=== PATIENT | female | born 1930 | race Caucasian/White ===

== ENCOUNTER → 2017-04-08 | Outpatient (CLI) | payer OTHER ==
[~2017-04-08] VITALS: Ht 162.6 cm; Wt 68.0 kg
[~2017-04-08] MED LIST: ADENOSINE 57 MG in GIVE UN-DILUTED 0 ML IV STA; ASCO500T11 PO; ASPI-231 PO; BENZ1CAP24 PO; CALC-315 OR; CHOL20007 OR; CHON400C PO; DICL1GEL26 TOP; GLUC1TAB22 PO; IRBE300T46 PO; LORA-622 PO; OMEG1CAP59 PO
[2017-04-08 09:35] VITALS: BP 145/85
== END | disposition home or self-care (01) ==
LOC: XYW 07:50
PROVIDERS: ATTEND Internal Medicine
DX: I08.3 Combined rheumatic disorders of mitral, aortic and tricuspid valves (principal); I11.0 Hypertensive heart disease with heart failure; I50.9 Heart failure, unspecified
CPT/HCPCS: 93017; 93306; J0153

== ENCOUNTER → 2017-04-20 | Outpatient (CLI) | payer OTHER ==
[~2017-04-20] MED LIST changes: -ADENOSINE 57 MG in GIVE UN-DILUTED 0 ML IV STA; +ALBUTEROL SULF 2.5 MG/0.5ML(0.5%) NEB SOLN ONE
== END | disposition home or self-care (01) ==
LOC: RT 08:41
PROVIDERS: ATTEND Internal Medicine Pulmonary Disease
DX: J47.9 Bronchiectasis, uncomplicated (principal)
CPT/HCPCS: 94060; 94640

== ENCOUNTER → 2017-05-11 | Outpatient (CLI) | payer OTHER ==
[~2017-05-11] MED LIST changes: -ALBUTEROL SULF 2.5 MG/0.5ML(0.5%) NEB SOLN ONE
[2017-05-11 08:58] LABS: Basophils # (auto) 0.1 uL; Basophils % (auto) 1.1 % (0.0-2.0); Eosinophils # (auto) 0.2 uL; Eosinophils % (auto) 2.6 % (0.0-7.0); Hematocrit 44.9 % (36.0-46.0); Hemoglobin 14.7 g/dL (12.2-16.2); Lymphocytes # (auto) 2.1 uL; Lymphocytes % (auto) 26.7 % (10.0-50.0); Mean Corpuscular Hemoglobin 29.6 pg (28.0-32.0); Mean Corpuscular Hgb Conc. 32.9 g/dL (32.0-36.0); Mean Corpuscular Volume 90.1 fL (80.0-100.0); Monocytes # (auto) 0.7 uL; Monocytes % (auto) 8.9 % (0.0-12.0); Neutrophils # (auto) 4.8 uL; Neutrophils % (auto) 60.7 % (37.0-80.0); Nucleated Red Blood Cells % 0.1 %; Platelet Count (auto) 316 10^3/uL (140-450); Red Blood Cells 4.98 10^6/uL (4.0-5.20); Red Cell Distribution Width 13.7 % (11.8-14.3); White Blood Cell 7.8 10^3/uL (4.4-10.8)
[2017-05-11 09:15] LABS: INR 0.98 (0.9-1.15); Partial Thromboplastin Time 28.3 sec (22.64-33.71); Prothrombin Time 10.7 sec (9.37-12.3)
[2017-05-11 10:22] LABS: Albumin 3.5 g/dL (3.4-5.0); BUN/Creatinine Ratio 27.5; Calcium 8.8 mg/dL (8.5-10.1); Total Protein 7.6 g/dL (6.4-8.2)
== END | disposition home or self-care (01) ==
LOC: LAB 08:44
PROVIDERS: ATTEND Internal Medicine
DX: Z01.812 Encounter for preprocedural laboratory examination (principal); I42.9 Cardiomyopathy, unspecified
CPT/HCPCS: 36415; 80053; 85025; 85610; 85730

== ENCOUNTER → 2017-05-12 | Day surgery (SDC) | payer OTHER ==
[~2017-05-12] VITALS: Ht 162.6 cm; Wt 67.6 kg
[~2017-05-12] MED LIST changes: +ANGIOMAX 250 MG VIAL IV ONE; +MIDAZOLAM HCL 1MG/1ML-2 ML VIAL ONE; +SODIUM CHL 0.9% 0 ML ONE; +fentaNYL CITRATE 100 MCG/2 ML VL ONE
== END | disposition home or self-care (01) ==
LOC: CATH 07:51
PROVIDERS: ATTEND Internal Medicine
DX: I42.9 Cardiomyopathy, unspecified (principal); Z88.0 Allergy status to penicillin; E66.9 Obesity, unspecified; J44.9 Chronic obstructive pulmonary disease, unspecified; Z88.8 Allergy status to other drugs, medicaments and biological substances; J40 Bronchitis, not specified as acute or chronic; Z79.82 Long term (current) use of aspirin; Z79.51 Long term (current) use of inhaled steroids; Z79.84 Long term (current) use of oral hypoglycemic drugs; N18.2 Chronic kidney disease, stage 2 (mild); I12.9 Hypertensive chronic kidney disease with stage 1 through stage 4 chronic kidney disease, or unspecified chronic kidney disease
CPT/HCPCS: 93458; C1760; C1894; J2250; J3010; J7030; 99152

== ENCOUNTER → 2017-06-25 | Outpatient (CLI) | payer OTHER ==
[~2017-06-25] MED LIST changes: -ANGIOMAX 250 MG VIAL IV ONE; -MIDAZOLAM HCL 1MG/1ML-2 ML VIAL ONE; -SODIUM CHL 0.9% 0 ML ONE; -fentaNYL CITRATE 100 MCG/2 ML VL ONE
[2017-06-25 12:58] LABS: Basophils # (auto) 0.1 uL; Basophils % (auto) 0.8 % (0.0-2.0); Eosinophils # (auto) 0.2 uL; Eosinophils % (auto) 3.2 % (0.0-7.0); Hematocrit 40.9 % (36.0-46.0); Hemoglobin 13.7 g/dL (12.2-16.2); Lymphocytes % (auto) 25.9 % (10.0-50.0); Mean Corpuscular Hgb Conc. 33.5 g/dL (32.0-36.0); Mean Corpuscular Volume 89.6 fL (80.0-100.0); Monocytes # (auto) 0.6 uL; Monocytes % (auto) 8.1 % (0.0-12.0); Neutrophils # (auto) 4.7 uL; Platelet Count (auto) 284 10^3/uL (140-450); Red Blood Cells 4.56 10^6/uL (4.0-5.20); Red Cell Distribution Width 13.2 % (11.8-14.3); Urine Bacteria NONE SEEN /hpf (None Seen); Urine Blood Negative /uL (Negative); Urine WBC <1 /hpf (0 - 5); White Blood Cell 7.6 10^3/uL (4.4-10.8)
[2017-06-25 13:05] LABS: INR 0.95 (0.9-1.15); Partial Thromboplastin Time 28.7 sec (22.64-33.71); Prothrombin Time 10.3 sec (9.37-12.3)
[2017-06-25 13:32] LABS: Free T4 (Free Thyroxine) 0.97 ng/dL (0.89-1.76)
[2017-06-25 13:33] LABS: T3 Total 0.95 ng/mL (0.60-1.81)
[2017-06-25 13:40] LABS: Albumin 3.4 g/dL (3.4-5.0); BUN/Creatinine Ratio 23.9; Bilirubin, Total 0.8 mg/dL (0.2-1.0); CRP High Sensitivity 0.51 mg/dL (< 0.3); Calcium 8.8 mg/dL (8.5-10.1); Potassium 3.9 mmol/L (3.5-5.1); Total Protein 7.2 g/dL (6.4-8.2)
== END | disposition home or self-care (01) ==
LOC: LAB 11:12
PROVIDERS: ATTEND Internal Medicine
DX: I13.0 Hypertensive heart and chronic kidney disease with heart failure and stage 1 through stage 4 chronic kidney disease, or unspecified chronic kidney disease (principal); N18.2 Chronic kidney disease, stage 2 (mild); I50.9 Heart failure, unspecified; J44.9 Chronic obstructive pulmonary disease, unspecified; Z79.82 Long term (current) use of aspirin; Z79.51 Long term (current) use of inhaled steroids
CPT/HCPCS: 36415; 80053; 80061; 81001; 82306; 82607; 83036; 84439; 84443; 84480; 85025; 85610; 85730; 86141

== ENCOUNTER → 2017-07-13 | Outpatient (CLI) | payer OTHER | END | disposition home or self-care (01) | LOC: XYW 10:01 | PROVIDERS: ATTEND Internal Medicine | DX: I08.0 Rheumatic disorders of both mitral and aortic valves (principal); I13.0 Hypertensive heart and chronic kidney disease with heart failure and stage 1 through stage 4 chronic kidney disease, or unspecified chronic kidney disease; N18.2 Chronic kidney disease, stage 2 (mild); I50.9 Heart failure, unspecified; J44.9 Chronic obstructive pulmonary disease, unspecified; Z79.82 Long term (current) use of aspirin | CPT/HCPCS: 93306 ==

== ENCOUNTER → 2017-07-20 | Outpatient (CLI) | payer OTHER | END | disposition home or self-care (01) | LOC: LAB 09:32 | PROVIDERS: ATTEND Specialist | DX: N76.0 Acute vaginitis (principal); I12.9 Hypertensive chronic kidney disease with stage 1 through stage 4 chronic kidney disease, or unspecified chronic kidney disease; N18.2 Chronic kidney disease, stage 2 (mild); J44.9 Chronic obstructive pulmonary disease, unspecified; Z79.82 Long term (current) use of aspirin; Z79.51 Long term (current) use of inhaled steroids | CPT/HCPCS: 87070; 87088; 87186 ==

== ENCOUNTER → 2018-02-23 | Outpatient (CLI) | payer OTHER ==
[2018-02-23 10:26] LABS: Basophils # (auto) 0.1 uL; Basophils % (auto) 1.4 % (0.0-2.0); Eosinophils # (auto) 0.2 uL; Eosinophils % (auto) 2.7 % (0.0-7.0); Hematocrit 42.7 % (36.0-46.0); Lymphocytes % (auto) 24.2 % (10.0-50.0); Mean Corpuscular Hemoglobin 29.8 pg (28.0-32.0); Mean Corpuscular Hgb Conc. 32.7 g/dL (32.0-36.0); Mean Corpuscular Volume 91.1 fL (80.0-100.0); Monocytes # (auto) 0.7 uL; Monocytes % (auto) 9.1 % (0.0-12.0); Neutrophils # (auto) 5.1 uL; Neutrophils % (auto) 62.6 % (37.0-80.0); Platelet Count (auto) 293 10^3/uL (140-450); Red Blood Cells 4.69 10^6/uL (4.0-5.20); Red Cell Distribution Width 13.6 % (11.8-14.3); White Blood Cell 8.2 10^3/uL (4.4-10.8)
[2018-02-23 10:50] LABS: Potassium 3.9 mmol/L (3.5-5.1)
[2018-02-23 10:58] LABS: Albumin 3.2 g/dL (3.4-5.0); BUN/Creatinine Ratio 24.7; Bilirubin, Total 1.1 mg/dL (0.2-1.0); Calcium 8.7 mg/dL (8.5-10.1); Total Protein 7.1 g/dL (6.4-8.2)
== END | disposition home or self-care (01) ==
LOC: LAB 09:49
PROVIDERS: ATTEND Physician Assistant
CPT/HCPCS: 36415; 80053; 80061; 85025

== ENCOUNTER → 2019-09-12 | Outpatient (CLI) | payer OTHER ==
[~2019-09-12] MED LIST changes: -BENZ1CAP24 PO; +BENZ200C64 PO; +IRBE300T43 PO; -IRBE300T46 PO
[2019-09-12 12:07] LABS: Basophils # (auto) 0.1 10 ^3/uL (0-0.2); Basophils % (auto) 1.1 % (0.0-2.0); Eosinophils # (auto) 0.3 10 ^3/uL (0-0.8); Eosinophils % (auto) 4.4 % (0.0-7.0); Hematocrit 39.9 % (36.0-46.0); Hemoglobin 13.1 g/dL (12.2-16.2); Lymphocytes % (auto) 29.5 % (10.0-50.0); Mean Corpuscular Hemoglobin 29.7 pg (28.0-32.0); Mean Corpuscular Hgb Conc. 32.8 g/dL (32.0-36.0); Mean Corpuscular Volume 90.7 fL (80.0-100.0); Monocytes # (auto) 0.6 10 ^3/uL (0-1.3); Neutrophils # (auto) 3.8 10 ^3/uL (1.6-8.6); Nucleated Red Blood Cells % 0.1 %; Platelet Count (auto) 295 10^3/uL (140-450); Red Cell Distribution Width 13.9 % (11.8-14.3); White Blood Cell 6.8 10^3/uL (4.4-10.8)
[2019-09-12 12:28] LABS: Albumin 3.1 g/dL (3.4-5.0); Potassium 3.9 mmol/L (3.5-5.1)
[2019-09-12 12:35] LABS: BUN/Creatinine Ratio 27.5; Calcium 8.5 mg/dL (8.5-10.1); Total Protein 6.8 g/dL (6.4-8.2)
== END | disposition home or self-care (01) ==
LOC: LAB 11:41
PROVIDERS: ATTEND Physician Assistant
DX: I13.0 Hypertensive heart and chronic kidney disease with heart failure and stage 1 through stage 4 chronic kidney disease, or unspecified chronic kidney disease (principal); N18.2 Chronic kidney disease, stage 2 (mild); I50.9 Heart failure, unspecified; E78.5 Hyperlipidemia, unspecified
CPT/HCPCS: 36415; 80053; 80061; 85025

== ENCOUNTER → 2020-11-07 | Outpatient (CLI) | payer OTHER ==
[2020-11-07 09:51] LABS: Basophils # (auto) 0.1 10 ^3/uL (0-0.2); Basophils % (auto) 1.3 % (0.0-2.0); Eosinophils # (auto) 0.1 10 ^3/uL (0-0.8); Eosinophils % (auto) 1.2 % (0.0-7.0); Hemoglobin 13.2 g/dL (12.2-16.2); Lymphocytes # (auto) 1.6 10 ^3/uL (0.4-5.4); Lymphocytes % (auto) 20.2 % (10.0-50.0); Mean Corpuscular Hemoglobin 30.5 pg (28.0-32.0); Mean Corpuscular Hgb Conc. 33.8 g/dL (32.0-36.0); Mean Corpuscular Volume 90.2 fL (80.0-100.0); Monocytes # (auto) 0.8 10 ^3/uL (0-1.3); Monocytes % (auto) 9.9 % (0.0-12.0); Neutrophils # (auto) 5.4 10 ^3/uL (1.6-8.6); Neutrophils % (auto) 67.4 % (37.0-80.0); Nucleated Red Blood Cells % 0.3 %; Red Blood Cells 4.32 10^6/uL (4.0-5.20); Red Cell Distribution Width 15.2 % (11.8-14.3)
[2020-11-07 10:32] LABS: Albumin 2.8 g/dL (3.4-5.0); Calcium 8.1 mg/dL (8.5-10.1); Potassium 3.9 mmol/L (3.5-5.1)
[2020-11-07 10:37] LABS: BUN/Creatinine Ratio 28.7; Bilirubin, Total 1.3 mg/dL (0.2-1.0)
[2020-11-07 10:38] LABS: Free T4 (Free Thyroxine) 1.43 ng/dL (0.89-1.76); T3 Total 0.77 ng/mL (0.60-1.81)
== END | disposition home or self-care (01) ==
LOC: LAB 09:31
PROVIDERS: ATTEND Nurse Practitioner Family
DX: I10 Essential (primary) hypertension (principal); M10.9 Gout, unspecified; R00.2 Palpitations; E03.9 Hypothyroidism, unspecified; R73.03 Prediabetes; M16.11 Unilateral primary osteoarthritis, right hip
CPT/HCPCS: 36415; 80053; 80061; 83880; 84439; 84443; 84480; 85025

== ENCOUNTER 2020-11-12 15:55 | Inpatient (IN) | payer OTHER ==
[~2020-11-12] VITALS: Ht 165.1 cm; Wt 64.7 kg
[2020-11-12] MEDS ORDERED: FUROSEMIDE 40 MG/4 ML VIAL IV ONE (17:00)
[2020-11-12 18:27] LABS: Basophils # (auto) 0.1 10 ^3/uL (0-0.2); Basophils % (auto) 0.8 % (0.0-2.0); Eosinophils # (auto) 0.1 10 ^3/uL (0-0.8); Eosinophils % (auto) 0.8 % (0.0-7.0); Hematocrit 41.1 % (36.0-46.0); Hemoglobin 13.8 g/dL (12.2-16.2); Lymphocytes # (auto) 1.5 10 ^3/uL (0.4-5.4); Mean Corpuscular Hemoglobin 30.1 pg (28.0-32.0); Mean Corpuscular Hgb Conc. 33.5 g/dL (32.0-36.0); Mean Corpuscular Volume 89.7 fL (80.0-100.0); Monocytes # (auto) 0.6 10 ^3/uL (0-1.3); Monocytes % (auto) 7.3 % (0.0-12.0); Neutrophils # (auto) 6.2 10 ^3/uL (1.6-8.6); Neutrophils % (auto) 73.1 % (37.0-80.0); Nucleated Red Blood Cells % 0.2 %; Red Blood Cells 4.58 10^6/uL (4.0-5.20); Red Cell Distribution Width 14.9 % (11.8-14.3); White Blood Cell 8.5 10^3/uL (4.4-10.8)
[2020-11-12 18:45] LABS: Albumin 2.9 g/dL (3.4-5.0); Anion Gap 4 (5-15); Blood Urea Nitrogen 24 mg/dL (7-18); Calcium 8.7 mg/dL (8.5-10.1); Carbon Dioxide 30 mmol/L (21-32); Chloride 103 mmol/L (98-107); Glucose 100 mg/dL (74-106); Potassium 4.4 mmol/L (3.5-5.1); Sodium 137 mmol/L (136-145)
[2020-11-12 18:53] LABS: Alanine Aminotransferase 67 U/L (13-56); Alkaline Phosphatase 83 U/L (45-117); Aspartate Aminotransferase 31 U/L (15-37); Bilirubin, Total 1.2 mg/dL (0.2-1.0); GFR African American 87 mL/min; GFR Non-African American 72 mL/min; Total Protein 6.2 g/dL (6.4-8.2)
[2020-11-12] MEDS ORDERED: ONDANSETRON HCL 4 MG/2 ML VIAL IV PRN (21:00)
[2020-11-12] MEDS ORDERED: NITROGLYCERIN 0.4 MG SL TAB SL PRN (21:00)
[2020-11-12] MEDS ORDERED: MORPHINE SULFATE INJECTION 2 MG/ML SYRG IV PRN (21:00)
[2020-11-12 21:47] LABS: BUN/Creatinine Ratio 33.3; Calcium 8.6 mg/dL (8.5-10.1)
[2020-11-12] MEDS: ASCORBIC ACID 500 MG TAB PO SCH (22:20)
[2020-11-13 01:00] VITALS: BP 133/71
[2020-11-13] MEDS ORDERED: POTA10TA51 PO (01:49)
[2020-11-13] MEDS ORDERED: FURO1TAB33 PO (01:49)
[2020-11-13] MEDS ORDERED: MULT-195 OR (01:49)
[2020-11-13] MEDS ORDERED: MULT-1018 PO (01:49)
[2020-11-13 02:18] LABS: Urine Bacteria NONE SEEN /hpf (None Seen); Urine Blood Negative /uL (Negative); Urine Specific Gravity 1.006 (1.001-1.035); Urine WBC <1 /hpf (0 - 5)
[2020-11-13 05:00] VITALS: BP 124/77
[2020-11-13] MEDS ORDERED: FUROSEMIDE 20 MG/2 ML VIAL IV SCH (06:00)
[2020-11-13 06:01] LABS: Basophils # (auto) 0 10 ^3/uL (0-0.2); Basophils % (auto) 0.6 % (0.0-2.0); Eosinophils # (auto) 0.2 10 ^3/uL (0-0.8); Eosinophils % (auto) 2.2 % (0.0-7.0); Hematocrit 40.7 % (36.0-46.0); Hemoglobin 13.5 g/dL (12.2-16.2); Lymphocytes % (auto) 25.5 % (10.0-50.0); Mean Corpuscular Hemoglobin 29.8 pg (28.0-32.0); Mean Corpuscular Hgb Conc. 33.1 g/dL (32.0-36.0); Mean Corpuscular Volume 90.1 fL (80.0-100.0); Monocytes # (auto) 0.7 10 ^3/uL (0-1.3); Monocytes % (auto) 9.5 % (0.0-12.0); Neutrophils # (auto) 4.8 10 ^3/uL (1.6-8.6); Neutrophils % (auto) 62.2 % (37.0-80.0); Nucleated Red Blood Cells % 0.1 %; Red Blood Cells 4.52 10^6/uL (4.0-5.20); Red Cell Distribution Width 15.2 % (11.8-14.3); White Blood Cell 7.7 10^3/uL (4.4-10.8)
[2020-11-13 09:00] VITALS: BP_SYST 118; BP_SYST 72; BP_DIAS 72
[2020-11-13] MEDS ORDERED: LOSARTAN POTASSIUM 50 MG TAB PO SCH (10:00)
[2020-11-13] MEDS: ASCORBIC ACID 500 MG TAB PO SCH ×2 (10:13→22:19)
[2020-11-13] MEDS: ASPirin 81 mg TAB PO SCH (10:13)
[2020-11-13] MEDS: PANTOPRAZOLE 40 MG TAB PO SCH (10:14)
[2020-11-13] MEDS: ENOXAPARIN SOD 40 MG/0.4 ML SYRINGE SC SCH (10:15)
[2020-11-13 13:00] VITALS: BP 128/76
[2020-11-13 17:00] VITALS: BP 117/83
[2020-11-13] MEDS: FUROSEMIDE 20 MG/2 ML VIAL IV SCH (18:56)
[2020-11-13] MEDS ORDERED: SACUBITRIL-VALSARTAN 24mg/26mg TAB PO SCH (22:00)
[2020-11-13 22:18] VITALS: BP 129/79
[2020-11-14 05:07] VITALS: BP 119/74
[2020-11-14] MEDS: FUROSEMIDE 20 MG/2 ML VIAL IV SCH ×2 (05:36→18:04)
[2020-11-14 06:19] LABS: Potassium 3.3 mmol/L (3.5-5.1)
[2020-11-14 06:25] LABS: BUN/Creatinine Ratio 30.2; Calcium 8.3 mg/dL (8.5-10.1)
[2020-11-14 09:00] VITALS: BP 105/71
[2020-11-14] MEDS ORDERED: POTASSIUM CHL 20 Meq TABLET PO ONE (10:15)
[2020-11-14] MEDS: ENOXAPARIN SOD 40 MG/0.4 ML SYRINGE SC SCH (10:52)
[2020-11-14] MEDS: PANTOPRAZOLE 40 MG TAB PO SCH (10:53)
[2020-11-14] MEDS: SPIRONOLACTONE 25 MG TAB PO SCH (10:53)
[2020-11-14] MEDS: ASPirin 81 mg TAB PO SCH (10:53)
[2020-11-14] MEDS: ASCORBIC ACID 500 MG TAB PO SCH ×2 (10:53→21:30)
[2020-11-14 13:00] VITALS: BP 141/85
[2020-11-14] MEDS: DOBUTamine 1000MCG/ML 250 ML IV SCH (13:51)
[2020-11-14 17:00] VITALS: BP 118/71
[2020-11-14] MEDS: SACUBITRIL-VALSARTAN 24mg/26mg TAB PO SCH (21:30)
[2020-11-14 22:00] VITALS: BP 115/60
[2020-11-15 03:30] LABS: BUN/Creatinine Ratio 28.8; Magnesium 2.2 mg/dL (1.6-2.6); Phosphorus 2.7 mg/dL (2.5-4.90); Potassium 3.8 mmol/L (3.5-5.1)
[2020-11-15 05:00] VITALS: BP 114/70
[2020-11-15] MEDS: FUROSEMIDE 20 MG/2 ML VIAL IV SCH ×2 (06:39→18:24)
[2020-11-15 09:01] VITALS: BP 136/69
[2020-11-15] MEDS: METOPROLOL TARTRATE 25 MG TAB PO SCH ×2 (10:00→22:00)
[2020-11-15] MEDS: ASPirin 81 mg TAB PO SCH (10:04)
[2020-11-15] MEDS: SACUBITRIL-VALSARTAN 24mg/26mg TAB PO SCH ×2 (10:04→22:25)
[2020-11-15] MEDS: ENOXAPARIN SOD 40 MG/0.4 ML SYRINGE SC SCH (10:04)
[2020-11-15] MEDS: ASCORBIC ACID 500 MG TAB PO SCH ×2 (10:05→22:25)
[2020-11-15] MEDS: PANTOPRAZOLE 40 MG TAB PO SCH (10:05)
[2020-11-15] MEDS: SPIRONOLACTONE 25 MG TAB PO SCH (10:05)
[2020-11-15] MEDS ORDERED: POTASSIUM CHL 20 Meq TABLET PO ONE (10:30)
[2020-11-15] MEDS: DOBUTamine 1000MCG/ML 250 ML IV SCH (12:27)
[2020-11-15 13:00] VITALS: BP 118/79
[2020-11-15 16:51] VITALS: BP 123/71
[2020-11-15 22:00] VITALS: BP 101/58
[2020-11-16 05:00] VITALS: BP 115/76
[2020-11-16] MEDS: FUROSEMIDE 20 MG/2 ML VIAL IV SCH ×2 (06:07→18:42)
[2020-11-16] MEDS: ACETAMINOPHEN 325 MG TAB PO PRN (06:20)
[2020-11-16 06:51] LABS: Potassium 3.8 mmol/L (3.5-5.1)
[2020-11-16 07:01] LABS: BUN/Creatinine Ratio 21.1
[2020-11-16 09:00] VITALS: BP 107/62
[2020-11-16] MEDS: ENOXAPARIN SOD 40 MG/0.4 ML SYRINGE SC SCH (09:01)
[2020-11-16] MEDS: ASPirin 81 mg TAB PO SCH (09:02)
[2020-11-16] MEDS: SACUBITRIL-VALSARTAN 24mg/26mg TAB PO SCH ×2 (09:02→21:54)
[2020-11-16] MEDS: SPIRONOLACTONE 25 MG TAB PO SCH (09:02)
[2020-11-16] MEDS: PANTOPRAZOLE 40 MG TAB PO SCH (09:03)
[2020-11-16] MEDS: METOPROLOL TARTRATE 25 MG TAB PO SCH ×2 (09:04→21:54)
[2020-11-16] MEDS: ASCORBIC ACID 500 MG TAB PO SCH ×2 (09:04→21:54)
[2020-11-16 12:41] VITALS: BP 97/66
[2020-11-16] MEDS: DOBUTamine 1000MCG/ML 250 ML IV SCH (14:22)
[2020-11-16 16:38] VITALS: BP 98/73
[2020-11-16 22:00] VITALS: BP 102/67
[2020-11-17 05:00] VITALS: BP 102/68
[2020-11-17] MEDS: FUROSEMIDE 20 MG/2 ML VIAL IV SCH (06:59)
[2020-11-17] MEDS: ENOXAPARIN SOD 40 MG/0.4 ML SYRINGE SC SCH (08:16)
[2020-11-17] MEDS: ASPirin 81 mg TAB PO SCH (08:17)
[2020-11-17] MEDS: PANTOPRAZOLE 40 MG TAB PO SCH (08:18)
[2020-11-17] MEDS: ASCORBIC ACID 500 MG TAB PO SCH (08:18)
[2020-11-17] MEDS: SPIRONOLACTONE 25 MG TAB PO SCH (08:18)
[2020-11-17] MEDS: SACUBITRIL-VALSARTAN 24mg/26mg TAB PO SCH ×2 (08:19→21:15)
[2020-11-17] MEDS: METOPROLOL TARTRATE 25 MG TAB PO SCH ×2 (08:20→21:16)
[2020-11-17 09:00] VITALS: BP 102/68
[2020-11-17] MEDS ORDERED: POTASSIUM CHL 20 Meq TABLET PO ONE (11:00)
[2020-11-17 12:59] VITALS: BP 139/59
[2020-11-17] MEDS: DOBUTamine 1000MCG/ML 250 ML IV SCH (16:50)
[2020-11-17 17:00] VITALS: BP 111/67
[2020-11-17] MEDS: FUROSEMIDE 40 MG/4 ML VIAL IV SCH (17:39)
[2020-11-17 22:00] VITALS: BP 105/62
[2020-11-18 05:00] VITALS: BP 107/63
[2020-11-18] MEDS: FUROSEMIDE 40 MG/4 ML VIAL IV SCH ×3 (05:30→17:22)
[2020-11-18 06:00] LABS: INR 1.05 (0.9-1.15); Partial Thromboplastin Time 28.2 sec (23.6-33.0)
[2020-11-18 06:02] LABS: Calcium 8.2 mg/dL (8.5-10.1); Magnesium 2.6 mg/dL (1.6-2.6); Potassium 3.9 mmol/L (3.5-5.1)
[2020-11-18 06:04] LABS: BUN/Creatinine Ratio 26.9
[2020-11-18 06:05] LABS: Urine Bacteria FEW /hpf (None Seen); Urine Blood Negative /uL (Negative); Urine WBC <1 /hpf (0 - 5)
[2020-11-18 06:14] LABS: Basophils # (auto) 0 10 ^3/uL (0-0.2); Basophils % (auto) 0.6 % (0.0-2.0); Eosinophils # (auto) 0.2 10 ^3/uL (0-0.8); Eosinophils % (auto) 3.3 % (0.0-7.0); Hematocrit 40.6 % (36.0-46.0); Hemoglobin 13.4 g/dL (12.2-16.2); Lymphocytes % (auto) 29.6 % (10.0-50.0); Mean Corpuscular Hemoglobin 29.6 pg (28.0-32.0); Mean Corpuscular Volume 89.6 fL (80.0-100.0); Monocytes # (auto) 0.7 10 ^3/uL (0-1.3); Monocytes % (auto) 10.2 % (0.0-12.0); Neutrophils # (auto) 3.7 10 ^3/uL (1.6-8.6); Neutrophils % (auto) 56.3 % (37.0-80.0); Nucleated Red Blood Cells % 0.1 %; Red Blood Cells 4.54 10^6/uL (4.0-5.20); Red Cell Distribution Width 15.2 % (11.8-14.3); White Blood Cell 6.7 10^3/uL (4.4-10.8)
[2020-11-18] MEDS: ASPirin 81 mg TAB PO SCH (08:08)
[2020-11-18] MEDS: SACUBITRIL-VALSARTAN 24mg/26mg TAB PO SCH ×2 (08:09→21:06)
[2020-11-18] MEDS: PANTOPRAZOLE 40 MG TAB PO SCH (08:09)
[2020-11-18] MEDS: SPIRONOLACTONE 25 MG TAB PO SCH (08:09)
[2020-11-18] MEDS: METOPROLOL TARTRATE 25 MG TAB PO SCH ×2 (08:10→21:06)
[2020-11-18 08:30] VITALS: BP 109/65
[2020-11-18] MEDS: ENOXAPARIN SOD 40 MG/0.4 ML SYRINGE SC SCH (10:00)
[2020-11-18 12:30] VITALS: BP 100/74
[2020-11-18] MEDS ORDERED: fentaNYL CITRATE 100 MCG/2 ML VL ONE (12:56)
[2020-11-18] MEDS ORDERED: MIDAZOLAM HCL 2MG/2ML 2ml VIAL (1mg/ml) ONE (12:57)
[2020-11-18] MEDS ORDERED: VANCOMYCIN HCL 1000 MG VL ONE (13:10)
[2020-11-18] MEDS ORDERED: VANCOMYCIN 1GM/250ML 250 ML IV ONE (13:10)
[2020-11-18] MEDS ORDERED: LIDOCAINE 2%HCL (LOCAL ANESTH.) INJ 20ML MDV ONE (13:16)
[2020-11-18 17:00] VITALS: BP 101/59
[2020-11-18] MEDS: ACETAMINOPHEN 325 MG TAB PO PRN (18:54)
[2020-11-18 22:00] VITALS: BP 120/65
[2020-11-18] MEDS: VANCOMYCIN 1GM/250ML 250 ML IV SCH (23:48)
[2020-11-19 05:00] VITALS: BP 120/77
[2020-11-19] MEDS: FUROSEMIDE 40 MG/4 ML VIAL IV SCH ×2 (06:00→18:41)
[2020-11-19 08:00] VITALS: BP 116/72
[2020-11-19] MEDS: METOPROLOL TARTRATE 25 MG TAB PO SCH ×2 (08:51→20:59)
[2020-11-19] MEDS: SPIRONOLACTONE 25 MG TAB PO SCH (08:51)
[2020-11-19] MEDS: ASPirin 81 mg TAB PO SCH (08:52)
[2020-11-19] MEDS: SACUBITRIL-VALSARTAN 24mg/26mg TAB PO SCH ×2 (08:53→20:59)
[2020-11-19] MEDS: ENOXAPARIN SOD 40 MG/0.4 ML SYRINGE SC SCH (08:54)
[2020-11-19] MEDS: ACETAMINOPHEN 325 MG TAB PO PRN (08:54)
[2020-11-19 12:00] VITALS: BP 110/63
[2020-11-19] MEDS ORDERED: SACU1TAB PO (12:18)
[2020-11-19] MEDS ORDERED: MET25T PO (12:18)
[2020-11-19] MEDS ORDERED: FURO1TAB33 PO (12:18)
[2020-11-19] MEDS ORDERED: SPIR25TA PO (12:18)
[2020-11-19] MEDS: VANCOMYCIN 1GM/250ML 250 ML IV SCH (12:47)
[2020-11-19 17:00] VITALS: BP 101/73
[2020-11-19 22:00] VITALS: BP 104/70
[2020-11-20 05:00] VITALS: BP 122/73
[2020-11-20] MEDS: FUROSEMIDE 40 MG/4 ML VIAL IV SCH ×2 (06:48→19:05)
[2020-11-20 09:00] VITALS: BP 121/76
[2020-11-20] MEDS: ASPirin 81 mg TAB PO SCH (09:38)
[2020-11-20] MEDS: ENOXAPARIN SOD 40 MG/0.4 ML SYRINGE SC SCH (09:38)
[2020-11-20] MEDS: METOPROLOL TARTRATE 25 MG TAB PO SCH ×2 (09:39→22:00)
[2020-11-20] MEDS: SACUBITRIL-VALSARTAN 24mg/26mg TAB PO SCH ×2 (09:39→22:02)
[2020-11-20] MEDS: ACETAMINOPHEN 325 MG TAB PO PRN (09:39)
[2020-11-20] MEDS: SPIRONOLACTONE 25 MG TAB PO SCH (09:39)
[2020-11-20 13:00] VITALS: BP 115/72
[2020-11-20 16:42] VITALS: BP 124/78
[2020-11-20 17:16] VITALS: BP 116/74
[2020-11-20 22:17] VITALS: BP 91/63
[2020-11-21] MEDS: ACETAMINOPHEN 325 MG TAB PO PRN (04:37)
[2020-11-21 05:00] VITALS: BP 105/70
[2020-11-21] MEDS: FUROSEMIDE 40 MG/4 ML VIAL IV SCH (06:56)
[2020-11-21 08:00] VITALS: BP 101/64
[2020-11-21 09:00] VITALS: BP 98/64
[2020-11-21] MEDS: SACUBITRIL-VALSARTAN 24mg/26mg TAB PO SCH (09:46)
[2020-11-21] MEDS: ASPirin 81 mg TAB PO SCH (09:46)
[2020-11-21] MEDS: SPIRONOLACTONE 25 MG TAB PO SCH (09:46)
[2020-11-21] MEDS: METOPROLOL TARTRATE 25 MG TAB PO SCH (09:47)
[2020-11-21] MEDS: ENOXAPARIN SOD 40 MG/0.4 ML SYRINGE SC SCH (09:47)
[2020-11-21 13:00] VITALS: BP 114/79
[2020-11-21 16:43] VITALS: BP 111/71
== END 2020-11-21 17:30 | disposition home health service (06) | DRG 226 ==
LOC: ER 15:55 → TELE 20:57 → TELE-CENTR 23:35
PROVIDERS: ADMIT Nurse Practitioner; ATTEND Internal Medicine
PROC: 0JH608Z Insertion of Defibrillator Generator into Chest Subcutaneous Tissue and Fascia, Open Approach (ICD-10-PCS; principal; 2020-11-18)
PROC: 02HK3KZ Insertion of Defibrillator Lead into Right Ventricle, Percutaneous Approach (ICD-10-PCS; 2020-11-18)
PROC: 02H63KZ Insertion of Defibrillator Lead into Right Atrium, Percutaneous Approach (ICD-10-PCS; 2020-11-18)
DX: I11.0 Hypertensive heart disease with heart failure (principal); I50.43 Acute on chronic combined systolic (congestive) and diastolic (congestive) heart failure; E44.0 Moderate protein-calorie malnutrition; Z20.822 Contact with and (suspected) exposure to COVID-19; I42.8 Other cardiomyopathies; Z68.24 Body mass index [BMI] 24.0-24.9, adult; Z88.0 Allergy status to penicillin; Z88.8 Allergy status to other drugs, medicaments and biological substances
CPT/HCPCS: 36415; 71045; 80048; 80053; 81001; 83735; 83880; 84100; 84484; 85025; 85610; 85730; 86850; 86900; 86901; 87426; 93005; 93306; 96374; 96375; 97110; 97116; 97163; 97530; 99152; 99153; G0378; J2250

== ENCOUNTER → 2021-01-07 | Outpatient (CLI) | payer OTHER ==
[2021-01-07] VITALS (8 sets, daily range): BP systolic 90–104; BP diastolic 45–65
[~2021-01-07] MED LIST changes: -ASCO500T11 PO; -ASPI-231 PO; +ASPI1TAB20 PO; -BENZ200C64 PO; +BUMETANIDE 1mg/4ml VIAL (0.25mg/ml) ONE; +BUMETANIDE 2.5mg/10ml (0.25 mg/ml) INJ IV ONE; +BUMETANIDE INJECTION 10 ML ONE; -CHON400C PO; -DICL1GEL26 TOP; +DOBUTamine 1000MCG/ML 250 ML IV ONE; +FURO1TAB33 PO; -GLUC1TAB22 PO; -IRBE300T43 PO; -LORA-622 PO; +MET25T PO; +MULT-1018 PO; -OMEG1CAP59 PO; +SACU1TAB PO; +SPIR25TA PO
[2021-01-07 15:30] LABS: BUN/Creatinine Ratio 37.6; Calcium 8.2 mg/dL (8.5-10.1); Potassium 4.1 mmol/L (3.5-5.1)
== END | disposition home or self-care (01) ==
LOC: CHF HDHVI 12:40
PROVIDERS: ATTEND Internal Medicine Cardiovascular Disease
DX: I11.0 Hypertensive heart disease with heart failure (principal); I50.43 Acute on chronic combined systolic (congestive) and diastolic (congestive) heart failure; E03.9 Hypothyroidism, unspecified; Z79.899 Other long term (current) drug therapy
CPT/HCPCS: 36415; 80048; 83880; 96365; 96366; 96375; 96376; G0463; J1250; J3490

== ENCOUNTER → 2021-01-13 | Outpatient (CLI) | payer OTHER ==
[2021-01-13] VITALS (11 sets, daily range): BP systolic 86–113; BP diastolic 45–64
[~2021-01-13] MED LIST changes: -BUMETANIDE INJECTION 10 ML ONE; +POTASSIUM EFFERVESENT TAB 25 MEQ ONE; +POTASSIUM EFFERVESENT TAB 25 MEQ PO ONE
[2021-01-13 12:19] LABS: Potassium 3.8 mmol/L (3.5-5.1)
== END | disposition home or self-care (01) ==
LOC: CHF HDHVI 10:00
PROVIDERS: ATTEND Internal Medicine Cardiovascular Disease
DX: I11.0 Hypertensive heart disease with heart failure (principal); I50.43 Acute on chronic combined systolic (congestive) and diastolic (congestive) heart failure; E03.9 Hypothyroidism, unspecified; Z79.899 Other long term (current) drug therapy
CPT/HCPCS: 36415; 82565; 83880; 84132; 84520; 96365; 96366; 96375; 96376; G0463; J1250; J3490

== ENCOUNTER → 2021-01-15 | Outpatient (CLI) | payer OTHER ==
[~2021-01-15] MED LIST changes: -BUMETANIDE 1mg/4ml VIAL (0.25mg/ml) ONE; -BUMETANIDE 2.5mg/10ml (0.25 mg/ml) INJ IV ONE; -DOBUTamine 1000MCG/ML 250 ML IV ONE; -POTASSIUM EFFERVESENT TAB 25 MEQ ONE; -POTASSIUM EFFERVESENT TAB 25 MEQ PO ONE
[2021-01-15 10:24] VITALS: BP 93/60
[2021-01-15 15:20] LABS: BUN/Creatinine Ratio 31.3; Calcium 8.3 mg/dL (8.5-10.1); Potassium 4.1 mmol/L (3.5-5.1)
== END | disposition home or self-care (01) ==
LOC: CHF HDHVI 09:47
PROVIDERS: ATTEND Internal Medicine Cardiovascular Disease
DX: I10 Essential (primary) hypertension (principal)
CPT/HCPCS: 36415; 80048; G0463